=== PATIENT | female | born 1970 | race Caucasian/White ===

== ENCOUNTER 2019-12-20 03:48 | Emergency (ER) | payer SELFPAY ==
[2019-12-20] MEDS ORDERED: NORMAL SALINE 1000 ML 1,000 ML IV ONE ×3 (04:04→07:28)
[2019-12-20] MEDS ORDERED: ONDANSETRON HCL INJ/PF 4 MG/2 ML SDV IV ONE (04:04)
[2019-12-20] MEDS ORDERED: LORAZEPAM INJ 2 MG/1 ML VIAL IV ONE ×2 (05:00→07:27)
[2019-12-20] MEDS ORDERED: KETOROLAC TROMETHAMINE INJ/PF 30 MG/1 ML SDV IV ONE (05:01)
--- NOTE | 2019-12-20 05:09 | ER Document Report ---
Entered by FLORESITA NEWSOME SCRIBE 12/20/19 0506 Acting as scribe for:PHILL ERICKSON IV, MD ED GI/ - General Mode of Arrival: Ambulatory Information source: Patient, Emergency Med Personnel <PHILL ERICKSON IV - Last Filed: 12/20/19 06:31> <NINO SPRING - Last Filed: 12/20/19 08:01> - General Chief Complaint: Vomiting Stated Complaint: VOMITING/WITHDRAWLS Time Seen by Provider: 12/20/19 04:34 Notes: This 49 year old female patient presents to the ED today from [facility] with complaints of uncontrolled vomiting since 2100 yesterday evening. Per ED nurse, patient received Thorazine, Phenergan, and Bentyl without relief. ED nurse reports that the patient is withdrawing from multiple narcotics including cocaine, opiates, meth, amphetamines, and fentanyl. Patient complains of generalized abdominal pain. Denies any other complaints. (PHILL ERICKSON IV) - Related Data Allergies/Adverse Reactions: tetracycline Allergy (Verified 12/20/19 04:04) Past Medical History - General Information source: [facility] Records - Social History Smoking Status: Current Every Day Smoker Cigarette use (# per day): Yes Chew tobacco use (# tins/day): No Smoking Education Provided: No Drug Abuse: Cocaine, Methamphetamine Family History: Reviewed & Not Pertinent <PHILL ERICKSON IV - Last Filed: 12/20/19 06:31> Review of Systems - Review of Systems Constitutional: No symptoms reported EENT: No symptoms reported Cardiovascular: No symptoms reported Respiratory: No symptoms reported Gastrointestinal: See HPI, Abdominal pain, Vomiting Genitourinary: No symptoms reported Female Genitourinary: No symptoms reported Musculoskeletal: No symptoms reported Skin: No symptoms reported Hematologic/Lymphatic: No symptoms reported Neurological/Psychological: No symptoms reported -: Yes All other systems reviewed and negative <PHILL ERICKSON IV - Last Filed: 12/20/19 06:31> Physical Exam - General General appearance: Alert, Anxious, Other - Disheveled appearance In distress: None - HEENT Head: Normocephalic, Atraumatic Eyes: Normal Pupils: PERRL Mouth/Lips: Other - Poor dentition - Respiratory Respiratory status: No respiratory distress Chest status: Nontender Breath sounds: Normal Chest palpation: Normal - Cardiovascular Rhythm: Regular, Tachycardia Heart sounds: Normal auscultation Murmur: No Friction rub: No Gallop: None auscultated - Abdominal Inspection: Normal Distension: No distension Bowel sounds: Hypoactive Tenderness: Nontender - Abdomen soft Organomegaly: No organomegaly - Back Back: Normal, Nontender - Extremities General upper extremity: Normal inspection General lower extremity: Normal inspection - Neurological Neuro grossly intact: Yes - Psychological Associated symptoms: Anxious, Psychomotor agitation - Skin Skin Temperature: Warm Skin Moisture: Dry Skin Color: Normal <PHILL ERICKSON IV - Last Filed: 12/20/19 06:31> - Vital signs Vitals: Temp Pulse Resp BP Pulse Ox 97.5 F 62 24 H 180/103 H 98 12/20/19 03:56 12/20/19 03:56 12/20/19 03:56 12/20/19 03:56 12/20/19 03:56 Course - Laboratory Result Diagrams: 12/20/19 04:35 12/20/19 04:35 - Transfer of Care Care transferred to following provider: Dr. Spring at 0625 <PHILL ERICKSON IV - Last Filed: 12/20/19 06:31> - Laboratory Result Diagrams: 12/20/19 04:35 12/20/19 04:35 <NINO SPRING - Last Filed: 12/20/19 08:01> - Vital Signs Vital signs: Temp Pulse Resp BP Pulse Ox 97.5 F 62 20 170/100 H 98 12/20/19 03:56 12/20/19 03:56 12/20/19 07:01 12/20/19 07:00 12/20/19 07:01 - Laboratory Laboratory results interpreted by me: 12/20/19 12/20/19 12/20/19 04:35 04:35 05:57 Hgb 15.8 H RDW 14.6 H Glucose 145 H AST 38 H Alkaline Phosphatase 135 H Total Protein 8.8 H Urine Blood SMALL H Ur Leukocyte Esterase TRACE H Discharge <PHILL ERICKSON IV - Last Filed: 12/20/19 06:31> <NINO SPRING E - Last Filed: 12/20/19 08:01> - Discharge Clinical Impression: Polysubstance abuse, Acute nausea with nonbilious vomiting Condition: Stable Disposition: HOME, SELF-CARE Additional Instructions: Return to [facility]. Prescriptions: Ondansetron [Zofran Odt 4 mg Tablet] 1 - 2 tab PO Q4H PRN #15 tab.rapdis PRN Reason: For Nausea/Vomiting I personally performed the services described in the documentation, reviewed and edited the documentation which was dictated to the scribe in my presence, and it accurately records my words and actions.
[2019-12-20 05:22] LABS: ABSOLUTE LYMPHOCYTES (AUTO) 1.9 10^3/uL (0.5-4.7); ABSOLUTE MONOCYTES (AUTO) 0.4 10^3/uL (0.1-1.4); ABSOLUTE NEUT (AUTO) 6.7 10^3/uL (1.7-8.2); BASOPHILS % (AUTO) 0.4 % (0-2); EOSINOPHILS % (AUTO) 0.2 % (0-6); HEMATOCRIT 45.7 % (36.0-47.0); HEMOGLOBIN 15.8 g/dL (12.0-15.5); MEAN CORPUSCULAR HEMOGLOBIN 31.2 pg (27.0-33.4); MEAN CORPUSCULAR HGB CONC 34.7 g/dL (32.0-36.0); MEAN CORPUSCULAR VOLUME 90 fl (80-97); MONOCYTES % (AUTO) 4.3 % (3-13); PLATELET COUNT 334 10^3/uL (150-450); RED BLOOD COUNT 5.08 10^6/uL (3.72-5.28); RED CELL DISTRIBUTION WIDTH 14.6 % (11.5-14.0); SEGMENTED NEUTROPHILS % (AUTO) 74.1 % (42-78); TOTAL CELLS COUNTED % (AUTO) 100 %
[2019-12-20] MEDS ORDERED: DIAZEPAM INJ 10 MG/2 ML DISP.SYRIN IV ONE (05:46)
[2019-12-20 05:47] LABS: ALKALINE PHOSPHATASE 135 U/L (38-126); ANION GAP 6 (5-19); ASPARTATE AMINO TRANSFERASE 38 U/L (14-36); BLOOD UREA NITROGEN 13 mg/dL (7-20); CALCIUM 9.3 mg/dL (8.4-10.2); CARBON DIOXIDE 27 mmol/L (22-30); CHLORIDE 107 mmol/L (98-107); GLUCOSE 145 mg/dL (75-110); TOTAL PROTEIN 8.8 g/dL (6.3-8.2)
[2019-12-20 06:22] LABS: AMORPHOUS SEDIMENT,URINE TRACE /HPF; APPEARANCE,URINE CLOUDY; BILIRUBIN,URINE NEGATIVE (NEGATIVE); COLOR,URINE YELLOW; GLUCOSE, URINE NEGATIVE (NEGATIVE); KETONES,URINE NEGATIVE (NEGATIVE); LEUKOCYTE ESTERASE,URINE TRACE (NEGATIVE); NITRITE,URINE NEGATIVE (NEGATIVE); PROTEIN,URINE NEGATIVE (NEGATIVE); URINE SPECIFIC GRAVITY 1.013; UROBILINOGEN,URINE NEGATIVE mg/dL (<2.0)
--- NOTE | 2019-12-20 08:05 | ER Document Report ---
Doctor's Note Notes: 12/20/19 08:03 This is a lady seen initially by Dr. Mike Louis who had been sent here from [facility] because of persistent vomiting and withdrawal symptoms related to polysubstance abuse. Her labs here were relatively unremarkable. She was mildly tremulous and was vomiting. She was treated with Zofran and Ativan here as well as IV fluids. She feels much better and is no longer vomiting. She is tolerating p.o. fluids. She is going to be discharged to return to [facility] at this time.
[2019-12-20 10:03] VITALS: BP 195/99
== END 2019-12-20 10:00 | disposition home or self-care (01) ==
LOC: ER 03:48
DX: R11.2 Nausea with vomiting, unspecified (principal); F14.23 Cocaine dependence with withdrawal; F11.23 Opioid dependence with withdrawal; F19.939 Other psychoactive substance use, unspecified with withdrawal, unspecified; R10.84 Generalized abdominal pain; R00.0 Tachycardia, unspecified; Z79.899 Other long term (current) drug therapy; Z88.8 Allergy status to other drugs, medicaments and biological substances
CPT/HCPCS: 96376; 99284; 96361; 96374; 96375; 36415; 85025; 80053; 81001; J3360; J1885; J2060; J2405; J7030